=== PATIENT | male | born 1955 | race Hispanic/Latino ===

== ENCOUNTER 2018-09-24 07:40 | Outpatient (CLI) | payer BC ==
--- NOTE | 2018-09-24 08:39 | ULT ---
HEPATIC ULTRASOUND WITH DOPPLER: HISTORY: Liver transplant, fatty liver FINDINGS: The liver demonstrates heterogeneous echotexture likely due to fatty infiltration. No focal mass or i ntrahepatic dilatation is seen. The patient is post cholecystectomy. The common duct measures 6 mm in diameter. The pancreas is not visualized. The spleen is normal measuring 9 cm in length. No free f luid is seen in the right upper quadrant. The hepatic, portal and splenic vasculature demonstrates normal flow in the appropriate direction wit h normal waveforms. IMPRESSION: Fatty liver.
== END 2018-09-24 07:41 | disposition home or self-care (01) ==
LOC: BICULT 07:40
DX: Z68.31 Body mass index [BMI] 31.0-31.9, adult (principal); K76.0 Fatty (change of) liver, not elsewhere classified; Z94.4 Liver transplant status
CPT/HCPCS: 76705